=== PATIENT | female | born 1995 | race African-American/Black ===

== ENCOUNTER 2018-03-07 20:35 | Emergency (ER) | payer OTHER ==
[~2018-03-07] VITALS: Ht 167.6 cm; Wt 154.2 kg
[2018-03-07 21:02] LABS: URINE BILIRUBIN NEGATIVE (Negative); URINE BLOOD NEGATIVE (Negative); URINE CLARITY CLEAR; URINE COLOR YELLOW; URINE GLUCOSE-RANDOM* NEGATIVE (Negative); URINE KETONES NEGATIVE (Negative); URINE LEUKOCYTES-REFLEX NEGATIVE (Negative); URINE NITRITE-REFLEX NEGATIVE (Negative); URINE PROTEIN (DIPSTICK) TRACE (Negative); URINE UROBILINOGEN 0.2 E.U./dl (0.2-1.0)
== END 2018-03-07 21:36 | disposition home or self-care (01) ==
LOC: ER 20:35
PROVIDERS: Nurse Practitioner Family
DX: Z32.02 Encounter for pregnancy test, result negative (principal)